=== PATIENT | female | born 1965 | race American Indian/Alaskan Native ===

== ENCOUNTER 2016-10-06 09:00 | Outpatient (CLI) | payer OTHER ==
--- NOTE | 2016-10-07 10:23 | Magnetic Resonance Report ---
MRI BRAIN WITHOUT AND WITH CONTRAST: 10/06/16 CLINICAL: Followup right parietal lobe lung cancer metastasis. COMPARISON: 07/26/16 TECHNIQUE: Axial diffusion, T1, FLAIR, gradient echo T2*, and coronal and axial T2 and sagittal T1 plus coronal and axial postcontrast T1 sequences on a 1.5 April magnet. 15.0 cc of Multihance was injected intravenously for the contrast portion of the exam. Consent was obtained prior to the administration of contrast. FINDINGS: The previously described right parietal lobe mass with accompanying adjacent T2 hyperintensity measures 3.6 x 3.0 cm compared to 3.2 x 2.9 cm on the last exam. The slight increase size is accounted for by slightly greater surrounding T2 hyperintensity. Stable minimal effect. It demonstrates heterogeneous signal with a significant hyperintense component on T1 it is unchanged compared to the previous exam. There is no enhancement and there was no enhancement on the last exam. It demonstrates stable restricted diffusion and there are no other areas of restricted diffusion. Stable bilateral multifocal white matter hyperintensities on FLAIR and T2. No evidence of hemorrhage. Extensive bilateral maxillary sinusitis with mucoperiosteal thickening and enhancement. IMPRESSION: Slightly greater edema associated with the right frontal lobe mass. However, no enhancement and no hemorrhage.
== END 2016-10-06 09:01 | disposition home or self-care (01) ==
LOC: SPVIMAG 09:00
PROVIDERS: ATTEND Internal Medicine Hematology
DX: C78.01 Secondary malignant neoplasm of right lung (principal); C79.31 Secondary malignant neoplasm of brain; J32.0 Chronic maxillary sinusitis; R60.9 Edema, unspecified
CPT/HCPCS: 70553; A9577

== ENCOUNTER 2016-11-02 14:03 | Emergency (ER) | payer OTHER ==
[2016-11-02] MEDS ORDERED: KEPPRA 1,000 MG/NS 0.75% 100ML 1,000 MG/100 ML BAG IV ONE (15:09)
--- NOTE | 2016-11-02 15:18 | Emergency Department Report ---
ED Seizure HPI - General Chief Complaint: Seizure Stated Complaint: SEIZURE Time Seen by Provider: 11/02/16 14:50 Source: patient, EMS Mode of arrival: Stretcher Limitations: Other - History of Present Illness Initial Comments: 51-year-old female presents to the emergency department via EMS after a seizure. Patient states that she has been trying to wean herself off of her Keppra because she doesn't like the way it makes her feel. She states today she began feeling numbness on her left side. She then began having focal seizure activity on her left side. Patient fell to the ground hitting her head on the concrete. There was no loss of consciousness. At this time, the patient denies pain. There are no other complaints. MD Complaint: seizure -: Sudden, This afternoon Description of Episode: tonic-clonic movement Witnessed:: Yes Trauma: Yes Seizure History: known seizure disorder, history of non-compliance Place: street/outdoors Possible Precipitating Event: none Associated Symptoms: denies other symptoms Treatments Prior to Arrival: none - Related Data Home Medications Medication Instructions Recorded Confirmed Last Taken LORazepam [Ativan] 1 mg PO TID PRN 11/02/16 11/02/16 Unknown Previous Rx's Medication Instructions Recorded Last Taken Type levETIRAcetam [Keppra TAB] 750 mg PO BID #60 tablet 09/23/15 11/02/16 09:00 Rx Nitrofurantoin Troup/M-Cryst 100 mg PO Q12HR #14 capsule 11/02/16 Unknown Rx [Macrobid CAP] Allergies Allergy/AdvReac Type Severity Reaction Status Date / Time STEROID CREAM Allergy Hives Uncoded 11/02/16 14:22 ED Review of Systems ROS: Stated complaint: SEIZURE Other details as noted in HPI Comment: All other systems reviewed and negative Skin: other (abrasions) Neurological: as per HPI (seizure) ED Past Medical Hx - Past Medical History Previous Medical History?: Yes Hx Seizures: Yes Additional medical history: / STAGE 4 LUNG CANCER - Surgical History Past Surgical History?: Yes Additional Surgical History: BRAIN SURGERY to remove tumor - Family History Family history: no significant - Social History Smoking Status: Former Smoker Substance Use Type: Alcohol, Marijuana - Medications Home Medications: Home Medications Medication Instructions Recorded Confirmed Last Taken Type levETIRAcetam [Keppra TAB] 750 mg PO BID #60 tablet 09/23/15 11/02/16 09:00 Rx LORazepam [Ativan] 1 mg PO TID PRN 11/02/16 11/02/16 Unknown History Nitrofurantoin Troup/M-Cryst 100 mg PO Q12HR #14 capsule 11/02/16 Unknown Rx [Macrobid CAP] ED Physical Exam - General Limitations: Other General appearance: alert, in no apparent distress - Head Head exam: Present: normocephalic, other (abrasions noted lateral to the right eye and over the right maxilla. Edema noted over the right maxilla. No active bleeding noted.) - Eye Eye exam: Present: normal appearance, PERRL, EOMI - ENT ENT exam: Present: normal exam, normal orophraynx, mucous membranes moist - Neck Neck exam: Present: normal inspection, full ROM. Absent: tenderness - Respiratory Respiratory exam: Present: normal lung sounds bilaterally. Absent: respiratory distress - Cardiovascular Cardiovascular Exam: Present: regular rate, normal rhythm, normal heart sounds - GI/Abdominal GI/Abdominal exam: Present: soft, normal bowel sounds. Absent: distended, tenderness - Extremities Exam Extremities exam: Present: normal inspection, full ROM. Absent: tenderness - Back Exam Back exam: Present: normal inspection, full ROM. Absent: tenderness - Neurological Exam Neurological exam: Present: alert, oriented X3. Absent: motor sensory deficit - Skin Skin exam: Present: warm, dry ED Course Vital Signs 11/02/16 11/02/16 14:23 14:29 Temperature 98.1 F Pulse Rate 115 H Respiratory 18 Rate Blood Pressure 137/98 O2 Sat by Pulse 97 99 Oximetry - Laceration /Wound Repair Right Lateral Eye Wound Location: face (lateral to right eyebrow) Wound Length (cm): 2 Wound's Depth, Shape: superficial Wound Explored: clean Wound Repaired With: Dermabond ED Medical Decision Making - Lab Data Result diagrams: 11/02/16 15:46 11/02/16 15:46 - Radiology Data Radiology results: report reviewed, image reviewed CT of the facial bones shows no acute bony of normality. Chronic sinusitis changes are noted. CT of the brain shows a lesion in the right frontal lobe with surrounding edema and calcifications. Acute hemorrhage cannot be ruled out. - Medical Decision Making Lab and imaging results reviewed and discussed with the patient. His CT results were discussed with the radiologist. Patient had an MRI of the brain in September 2016 which appears the same as her current head CT. After cleaning the patient's facial wounds, one laceration and repair was identified. See procedure note for repair details. Patient will be discharged home on oral anti -biotics at this time. - Differential Diagnosis seizure, medication non-compliance, abrasion, contusion, fracture Critical care attestation.: If time is entered above; I have spent that time in minutes in the direct care of this critically ill patient, excluding procedure time. ED Disposition Clinical Impression: Seizure UTI (urinary tract infection) Qualifiers: Urinary tract infection type: acute cystitis Hematuria presence: without hematuria Qualified Code(s): N30.00 - Acute cystitis without hematuria Disposition: DISCHARGED TO HOME OR SELFCARE Is pt being admited?: No Condition: Stable Instructions: Recurrent Seizures Adult (ED), Urinary Tract Infection in Women ( ED) Prescriptions: Nitrofurantoin Troup/M-Cryst [Macrobid CAP] 100 mg PO Q12HR #14 capsule Referrals: PRIMARY CARE, [Primary Care Provider] - 3-5 Days Time of Disposition: 17:43
[2016-11-02] MEDS ORDERED: NACL ONE (15:26)
[2016-11-02 16:27] LABS: Basophils % (Auto) 0.5 % (0.0-1.8); Eosinophils % (Auto) 0.3 % (0.0-4.3); Hematocrit 44.3 % (30.3-42.9); Hemoglobin 14.7 gm/dl (10.1-14.3); Mean Corpuscular HGB Conc 33 % (30-34); Mean Corpuscular Hemoglobin 33 pg (28-32); Mean Corpuscular Volume 98 fl (79-97); Platelet Count 259 K/mm3 (140-440); Red Blood Count 4.52 M/mm3 (3.65-5.03); Red Cell Distribution Width 14.5 % (13.2-15.2); White Blood Count 5.3 K/mm3 (4.5-11.0)
--- NOTE | 2016-11-02 16:27 | Cat Scan Report ---
Cranial CT without contrast. History: Trauma in a patient with known brain metastasis from lung carcinoma. A recent MRI of the brain on October 06 is compared to the current study. Findings: There is a mixed density mass in the right frontal lobe which has been described on multiple previous studies. There are dense areas of hyperdensity consistent with amorphous calcification, but there is less dense material in the lesion and thus I cannot exclude hemorrhage into the mass. There is moderate surrounding hypodensity/edema. The size of the mass is approximately 2.2 cm which is consistent with the previous MRI study. An associated craniotomy defect is noted in the right frontal bone. The remainder of the brain parenchyma is unremarkable. Posterior fossa is normal. The ventricles are not shifted effaced. Impression: Partially calcified right frontal mass with surrounding edema and possible hemorrhage within the mass. Postsurgical craniotomy changes are noted.
[2016-11-02 16:30] LABS: Anion Gap 20 mmol/L; Blood Urea Nitrogen 10 mg/dL (7-17); Calcium 9.6 mg/dL (8.4-10.2); Carbon Dioxide 24 mmol/L (22-30); Chloride 102.9 mmol/L (98-107); Glucose 103 mg/dL (65-100); Potassium 4.5 mmol/L (3.6-5.0); Sodium 142 mmol/L (137-145)
[2016-11-02] MEDS ORDERED: NACL 0.9% 500 ML IR ONE (16:31)
[2016-11-02] MEDS ORDERED: TRIPLE ANTIBIOTIC TP ONE (16:31)
--- NOTE | 2016-11-02 16:32 | Cat Scan Report ---
CT of the facial bones. History: Facial trauma/pain. Findings: There are no fractures or other acute findings. There is severe opacification of the right maxillary sinus and mucoperiosteal thickening is noted in the left maxillary and ethmoid sinuses. No air-fluid levels are seen. The orbits are intact. The nasal bone is intact. Impression: No acute findings. Chronic sinus disease is noted.
[2016-11-02 17:14] LABS: Bilirubin,Urine NEG (Negative); Blood,Urine NEG (Negative); Ketones,Urine NEG (Negative); Leukocyte Esterase,Urine LG (Negative); Nitrite,Urine NEG (Negative); Protein,Urine <15 mg/dL mg/dL (Negative); Urobilinogen,Urine < 2.0 mg/dL (<2.0)
[2016-11-02 17:52] VITALS: BP 142/78
== END 2016-11-02 17:55 | disposition home or self-care (01) ==
LOC: ED 14:03
DX: N30.00 Acute cystitis without hematuria (principal); R56.9 Unspecified convulsions; S01.111A Laceration without foreign body of right eyelid and periocular area, initial encounter; W18.30XA Fall on same level, unspecified, initial encounter; Y93.9 Activity, unspecified; Y92.9 Unspecified place or not applicable; Y99.9 Unspecified external cause status
CPT/HCPCS: 12011; 36415; 70450; 70486; 80048; 81001; 85025; 96365; 99285; J1953; A6250

== ENCOUNTER 2016-11-19 14:25 | Emergency (ER) | payer OTHER | END 2016-11-19 19:10 | disposition left against medical advice (07) | LOC: ED 14:25 | DX: R56.9 Unspecified convulsions (principal); R20.0 Anesthesia of skin; Z53.21 Procedure and treatment not carried out due to patient leaving prior to being seen by health care provider ==

== ENCOUNTER 2016-12-20 12:21 | Outpatient (CLI) | payer OTHER ==
--- NOTE | 2016-12-20 15:57 | Magnetic Resonance Report ---
MRI BRAIN WITHOUT AND WITH CONTRAST: 12/20/16 00:00:00 CLINICAL: New onset seizures. History of a right parietal lobe lung cancer metastasis treated with radiation therapy and chemotherapy. COMPARISON: 10/06/16 and 07/26/16 exams plus additional scans going back to 06/29/15. TECHNIQUE: Axial diffusion, T1, FLAIR, gradient echo T2*, and coronal and axial T2 and sagittal T1 plus coronal and axial postcontrast T1 sequences on a 1.5 April magnet. 15.0 cc of Multihance was injected intravenously without incident for the contrast portion of the exam. Consent was obtained prior to the administration of contrast. FINDINGS: The previously described right parietal lobe mass with accompanying adjacent T2 hyperintensity has enlarged and now measures 3.8 x 3.9 x 3.9 cm compared to 3.6 x 3.0 x 3.4 cm on the last exam. The mass again demonstrates hyperintense T1 signal with no enhancement. However, the hyperintense T2 component of the mass has increased in size and accounts for the enlargement. There is slightly greater mass effect in the right hemisphere with slightly greater adjacent vasogenic edema. However, no midline shift. The ventricles and sulci are stable in size. The mass demonstrates stable restricted diffusion and no other lesions are identified. Stable bilateral multifocal white matter hyperintensities on FLAIR and T2. No evidence of hemorrhage. Stable extensive bilateral maxillary sinusitis and new bilateral ethmoid mucoperiosteal thickening. IMPRESSION: Despite the absence of enhancement, continued enlargement of the right parietal lobe metastasis. Slightly greater mass effect and no significant mass effect on the midline or the ventricles. No additional lesions are identified. Bilateral maxillary and ethmoid sinusitis.
== END 2016-12-20 12:22 | disposition home or self-care (01) ==
LOC: SPVIMAG 12:21
PROVIDERS: ATTEND Internal Medicine Hematology
DX: C78.01 Secondary malignant neoplasm of right lung (principal); C34.11 Malignant neoplasm of upper lobe, right bronchus or lung; R56.9 Unspecified convulsions; J32.0 Chronic maxillary sinusitis; J32.2 Chronic ethmoidal sinusitis
CPT/HCPCS: 70553; A9577

== ENCOUNTER 2017-05-02 22:07 | Emergency (ER) | payer SELFPAY ==
[2017-05-03] MEDS ORDERED: ATIVAN IV ONE (00:15)
[2017-05-03 00:53] VITALS: BP 112/74
--- NOTE | 2017-05-03 01:13 | Emergency Department Report ---
ED Seizure HPI - General Chief Complaint: Seizure Stated Complaint: HEART RATE HIGH Time Seen by Provider: 05/03/17 00:02 Source: patient Mode of arrival: Ambulatory Limitations: No Limitations - History of Present Illness Initial Comments: 51-year-old female with a past medical history metastatic lung cancer stage IV with metastasis to the brain and seizures presents to the hospital complaining of seizure. Patient had surgery on 02/02/2017 to remove scar tissue from previous mass resection. Patient states that she took her Keppra 1500 mg twice a day dose today but took it one hour later the usual. Patient states her threshold used to be 2 hours but now it is 1 hour since her surgery. Preceding symptoms include left arm stiffness followed by seizure. No pain reported. Patient feeling a little shaky and nervous. She states she has had a rapid heartbeat going up to 109-110 times one month. She was placed on a twice a day medication to help or heart rate. After her seizure heart rates in the 120 range so she took a third unscheduled dose prior to arrival. Her doctors are all [facility] affiliated. She reports that she was ruled out for pulmonary embolism about 1 week ago. She is scheduled to see a finishing inspector next to help control her heart rate. - Related Data Home Medications Medication Instructions Recorded Confirmed Last Taken Amlodipine Besylate [Norvasc] 2.5 mg PO DAILY 05/03/17 05/03/17 05/03/17 Labetalol [Normodyne TAB] 100 mg PO BID 05/03/17 05/03/17 05/03/17 Oxycodone HCl/Acetaminophen 1 each PO Q6HR PRN 05/03/17 05/03/17 05/03/17 [Percocet 10/325 mg] levETIRAcetam [Keppra TAB] 1,000 mg PO BID 05/03/17 05/03/17 05/03/17 Allergies Allergy/AdvReac Type Severity Reaction Status Date / Time STEROID CREAM Allergy Hives Uncoded 11/02/16 14:22 ED Review of Systems ROS: Stated complaint: HEART RATE HIGH Other details as noted in HPI Comment: All other systems reviewed and negative Other: Constitutional: No fevers chills Eyes: No eye pain visual changes ENT: No ear pain or throat pain Neck: Denies pain Respiratory: Denies cough wheezing shortness of breath Cardiovascular: Denies chest pain, palpitations, syncope GI: Denies abdominal pain, nausea, vomiting : Denies dysuria Musculoskeletal: Denies back pain Skin: Denies rash, lesions, erythema Neurologic: Denies headache, Chronic left arm and left leg weakness and numbness due to cancer and previous surgery Psychiatric: Denies suicidal ideation, hallucinations ED Past Medical Hx - Past Medical History Previous Medical History?: Yes Hx Seizures: Yes Additional medical history: / STAGE 4 LUNG CANCER - Surgical History Past Surgical History?: Yes Additional Surgical History: BRAIN SURGERY to remove tumor - Social History Smoking Status: Former Smoker Substance Use Type: None - Medications Home Medications: Home Medications Medication Instructions Recorded Confirmed Last Taken Type Amlodipine Besylate [Norvasc] 2.5 mg PO DAILY 05/03/17 05/03/17 05/03/17 History Labetalol [Normodyne TAB] 100 mg PO BID 05/03/17 05/03/17 05/03/17 History Oxycodone HCl/Acetaminophen 1 each PO Q6HR PRN 05/03/17 05/03/17 05/03/17 History [Percocet 10/325 mg] levETIRAcetam [Keppra TAB] 1,000 mg PO BID 05/03/17 05/03/17 05/03/17 History ED Physical Exam - General Limitations: No Limitations - Other Other exam information: General: No limitations, patient is alert in no acute distress Head exam: Right parietal craniotomy scar noted Eyes exam: Normal appearance, pupils equal reactive to light, extraocular movements intact ENT: Moist mucous membrane, normal oropharynx Neck exam: Normal inspection, full range of motion, no meningismus nontender Respiratory exam: Clear to auscultation bilateral, no wheezes, rales, crackles Cardiovascular: Normal rate and rhythm, normal heart sounds Abdomen: Soft, nondistended, and nontender, with normal bowel sounds, no rebound, or guarding Extremity: Atrophy noted to left hand Back: Normal Inspection, full range of motion, no tenderness Neurologic: Alert, oriented x3, cranial nerves intact, weakness to the left arm and left leg with decreased sensation noted and chronic. Psychiatric: normal affect, normal mood Skin: Warm, dry, intactam ED Course Vital Signs 05/02/17 05/02/17 05/02/17 22:13 22:17 22:19 Temperature 98.3 F Pulse Rate 67 91 H 103 H Respiratory 20 18 19 Rate Blood Pressure 118/87 116/80 O2 Sat by Pulse 98 92 91 Oximetry 05/02/17 05/02/17 05/02/17 22:21 22:29 22:30 Temperature Pulse Rate 101 H 101 H 99 H Respiratory 18 17 14 Rate Blood Pressure 116/80 116/80 119/76 O2 Sat by Pulse 90 91 89 Oximetry 05/02/17 05/02/17 05/02/17 22:41 22:50 23:01 Temperature Pulse Rate 102 H 96 H 96 H Respiratory 22 17 18 Rate Blood Pressure 119/76 116/80 116/80 O2 Sat by Pulse 88 88 91 Oximetry 05/02/17 05/02/17 05/02/17 23:11 23:47 23:51 Temperature Pulse Rate 97 H 97 H 96 H Respiratory 19 18 21 Rate Blood Pressure 116/80 119/76 119/76 O2 Sat by Pulse 91 90 90 Oximetry 05/03/17 05/03/17 05/03/17 00:01 00:11 00:21 Temperature Pulse Rate 105 H 97 H 97 H Respiratory 24 17 21 Rate Blood Pressure 119/76 119/76 119/76 O2 Sat by Pulse 93 89 91 Oximetry 05/03/17 05/03/17 05/03/17 00:31 00:41 01:22 Temperature Pulse Rate 106 H 99 H Respiratory 22 17 18 Rate Blood Pressure 119/76 112/74 O2 Sat by Pulse 95 94 99 Oximetry - Reevaluation(s) Reevaluation #1: 05/03/17 01:12 Patient took her 5000 mg Keppra prior to arrival. 1 mg of Ativan given 05/03/17 01:36 Patient feels better after Ativan ED Medical Decision Making - Medical Decision Making Patient given Ativan. Keppra wasnot given since patient took her dose prior to arrival. Patient has mild tachycardia during ED stay which appears to be chronic 1 month as per patient. Patient has received outpatient workup for the past month and plans to see her doctor tomorrow. - Differential Diagnosis breakthrough seizure, medication noncompliance Critical Care Time: No Critical care attestation.: If time is entered above; I have spent that time in minutes in the direct care of this critically ill patient, excluding procedure time. ED Disposition Clinical Impression: Seizure, Sinus tachycardia Disposition: DC-01 TO HOME OR SELFCARE Is pt being admited?: No Does the pt Need Aspirin: No Condition: Stable Instructions: Recurrent Seizures Adult (ED), Palpitations (ED) Additional Instructions: Follow-up with your doctor. Return if symptoms worsen. Take your medications as prescribed Referrals: PRIMARY CARE,MD [Primary Care Provider] - 2-3 Days your, neurologist [Other] - 3-5 Days Time of Disposition: 01:37
== END 2017-05-03 01:49 | disposition home or self-care (01) ==
LOC: ED 22:07
DX: R56.9 Unspecified convulsions (principal); R00.0 Tachycardia, unspecified; Z87.891 Personal history of nicotine dependence
CPT/HCPCS: 96374; 99282; J2060

== ENCOUNTER 2022-03-19 08:52 | Emergency (ER) | payer MEDICARE ==
[2022-03-19] MEDS ORDERED: methylPREDNISolone Sod Succinate 125 MG/2 ML INJ IV ONE (09:23)
[2022-03-19] MEDS ORDERED: ALBUTEROL 2.5 MG/3 ML NEBU IH ONE ×2 (09:24→10:08)
[2022-03-19] MEDS ORDERED: IPRATROPIUM 0.02% NEBU 2.5 ML IH ONE ×2 (09:32→10:13)
--- NOTE | 2022-03-19 09:43 | XRay Report ---
Chest single view INDICATION: Dyspnea IMPRESSION: Prominent linear opacity projects over the right upper lung, age indeterminate but probab ly chronic. The left lung is clear. The heart size is normal. Port terminates at the SVC/right initia l junction. Signer Name: Harley Watts MD Signed: 03/19/2022 9:39 AM Workstation Name: [employer]
[2022-03-19 10:07] LABS: Hematocrit 37.8 % (30.3-42.9); Mean Corpuscular HGB Conc 34 % (30-34); Mean Corpuscular Volume 93 fl (79-97); Platelet Count 227 K/mm3 (140-440); Red Blood Count 4.05 M/mm3 (3.65-5.03); Red Cell Distribution Width 13.5 % (13.2-15.2)
[2022-03-19 10:35] LABS: Alanine Aminotransferase 19 units/L (7-56); Albumin 4.4 g/dL (3.9-5); Blood Urea Nitrogen 8 mg/dL (7-17); Calcium 9.4 mg/dL (8.4-10.2); Hemolysis Index 15
[2022-03-19 10:36] LABS: BUN/Creatinine Ratio 11
[2022-03-19 11:48] LABS: Total Cells Counted 100
[2022-03-19 11:49] LABS: Platelet Estimate Consistent w Auto; RBC Morphology Normal
[2022-03-19 11:52] LABS: ABG Base Excess -0.3 mmol/L (-2.0-3.0); ABG HCO3 25.9 mmol/L (20.0-26.0); ABG Methemoglobin 0.6 % (0.0-1.5); ABG Oxygen Saturation 98.5 % (95.0-99.0); ABG PCO2 48.8 mm Hg; ABG PH 7.344 pH Units (7.350-7.450); ABG PO2 135.3 mm Hg (80.0-90.0)
--- NOTE | 2022-03-19 13:07 | Emergency Department Report ---
ED Shortness of Breath HPI - General Chief Complaint: Dyspnea/Respdistress Stated Complaint: RACHEL Time Seen by Provider: 03/19/22 09:18 Source: patient, EMS Mode of arrival: Stretcher Limitations: No Limitations - History of Present Illness Initial Comments: Patient is a 56-year-old female with history of stage IV lung cancer with mets presenting with complaint of shortness of breath. Brought in by EMS on BiPAP. EMS reports patient satting 83% on room air on arrival. She was given 5 mg of albuterol along with 125 Solu-Medrol in route. - Related Data Home Medications Medication Instructions Recorded Confirmed Last Taken Amlodipine Besylate [Norvasc] 2.5 mg PO DAILY 05/03/17 05/03/17 05/03/17 Oxycodone HCl/Acetaminophen 1 each PO Q6HR PRN 05/03/17 05/03/17 05/03/17 [Percocet 10/325 mg] labetaloL [Normodyne TAB] 100 mg PO BID 05/03/17 05/03/17 05/03/17 levETIRAcetam [Keppra TAB] 1,000 mg PO BID 05/03/17 05/03/17 05/03/17 Allergies Allergy/AdvReac Type Severity Reaction Status Date / Time STEROID CREAM Allergy Unknown Hives Uncoded 03/19/22 08:55 ED Review of Systems ROS: Stated complaint: RACHEL Other details as noted in HPI Constitutional: denies: chills, fever Respiratory: shortness of breath Cardiovascular: denies: chest pain, palpitations Gastrointestinal: denies: abdominal pain, nausea, diarrhea Musculoskeletal: denies: back pain, joint swelling, arthralgia Skin: denies: rash, lesions Neurological: denies: headache, weakness, paresthesias Psychiatric: denies: anxiety, depression Hematological/Lymphatic: denies: easy bleeding, easy bruising ED Past Medical Hx - Past Medical History Hx Seizures: Yes Additional medical history: / STAGE 4 LUNG CANCER - Surgical History Additional Surgical History: BRAIN SURGERY to remove tumor - Social History Smoking Status: Former Smoker Substance Use Type: None - Medications Home Medications: Home Medications Medication Instructions Recorded Confirmed Last Taken Type Amlodipine Besylate [Norvasc] 2.5 mg PO DAILY 05/03/17 05/03/17 05/03/17 History Oxycodone HCl/Acetaminophen 1 each PO Q6HR PRN 05/03/17 05/03/17 05/03/17 History [Percocet 10/325 mg] labetaloL [Normodyne TAB] 100 mg PO BID 05/03/17 05/03/17 05/03/17 History levETIRAcetam [Keppra TAB] 1,000 mg PO BID 05/03/17 05/03/17 05/03/17 History ED Physical Exam - General Limitations: No Limitations General appearance: alert, in distress - Head Head exam: Present: atraumatic, normocephalic - Respiratory Respiratory exam: Present: respiratory distress, wheezes - Cardiovascular Cardiovascular Exam: Present: normal rhythm, tachycardia, normal heart sounds - GI/Abdominal GI/Abdominal exam: Present: soft. Absent: distended, tenderness - Rectal Rectal exam: Present: deferred - Neurological Exam Neurological exam: Present: alert, oriented X3 - Psychiatric Psychiatric exam: Present: normal affect, normal mood - Skin Skin exam: Present: warm, dry, intact, normal color ED Course Vital Signs 03/19/22 03/19/22 03/19/22 08:52 08:54 09:30 Pulse Rate 130 H 125 H Pulse Rate [ 70 Anterior] Pulse Rate [ 74 Posterior] Respiratory 30 H 32 H Rate Respiratory 18 Rate [Anterior] Respiratory 18 Rate [Posterior ] Blood Pressure 130/93 [Left] O2 Sat by Pulse 95 99 99 Oximetry ED Medical Decision Making - Lab Data Result diagrams: 03/19/22 09:39 03/19/22 09:39 - Radiology Data Radiology results: report reviewed Prominent right linear opacity that is likely chronic. No acute findings. - Medical Decision Making CBC and CMP grossly unremarkable. Patient given 10 mg of nebulized albuterol along with 1 Atrovent. ABG shows pH of 7.344, PCO2 48, PO2 135. Patient was successfully weaned off of BiPAP. She is currently satting 93 to 96% on room air. Likely COPD exacerbation. I discussed results with her. She is stable for discharge home with return precautions. Critical care attestation.: If time is entered above; I have spent that time in minutes in the direct care of this critically ill patient, excluding procedure time. ED Disposition Clinical Impression: COPD exacerbation Disposition: 01 HOME / SELF CARE / HOMELESS Is pt being admited?: No Condition: Stable Instructions: Chronic Obstructive Pulmonary Disease (ED), Chronic Obstructive Pulmonary Disease Referrals: PRIMARY CARE, [Primary Care Provider] - 3-5 Days Time of Disposition: 13:10
[2022-03-19 15:21] VITALS: BP 111/66
== END 2022-03-19 14:45 | disposition home or self-care (01) ==
LOC: ED 08:52
DX: J44.1 Chronic obstructive pulmonary disease with (acute) exacerbation (principal); R56.9 Unspecified convulsions; Z91.09 Other allergy status, other than to drugs and biological substances; Z87.891 Personal history of nicotine dependence
CPT/HCPCS: 36415; 71045; 80053; 82803; 85007; 85025; 94640; 94644; 99284